=== PATIENT | female | born 1975 | race Caucasian/White ===

== ENCOUNTER 2018-03-10 16:11 | Emergency (ER) | payer MEDICAID ==
[~2018-03-10] VITALS: Ht 147.3 cm; Wt 62.1 kg
[2018-03-10] MEDS ORDERED: NORCO 7.5-3251 EACH PO (17:18)
== END 2018-03-10 17:25 | disposition home or self-care (01) ==
LOC: ED 16:11
DX: S82.65XA Nondisplaced fracture of lateral malleolus of left fibula, initial encounter for closed fracture (principal); S93.402A Sprain of unspecified ligament of left ankle, initial encounter; X50.9XXA Other and unspecified overexertion or strenuous movements or postures, initial encounter
CPT/HCPCS: 73610; 99283